=== PATIENT | male | born 1955 | race Caucasian/White ===

== ENCOUNTER → 2017-08-18 | Outpatient (CLI) | payer MEDICAID, MEDICARE, OTHER ==
[~2017-08-18] MED LIST: REGADENOSON 0.4 MG/5 ML DISP.SYRIN. IV ONE
--- NOTE | 2017-08-18 13:40 | RAD ---
APPROVED REPORT Test Type: Exercise Stress Nurse/Tech: Lindsay Robles R.N. Test Indications: htn Cardiac History: htn, dm Medications: see ehr Medical History: see ehr Resting ECG: SR with pacs Resting Heart Rate: 77 bpm Resting Blood Pressure: 163/70mmHg Pretest Chest Pain: No chest pain Nurse/Tech Notes lungs cta, heart tones irregular Consent: The procedure was explained to the patient in lay terms. Informed consent was witnessed. Franco eout was entered into [facility]. History and Stress Test performed by KARINE Sandoval, ARRT (R) (N) Stress Symptoms No chest pain or symptoms. POST EXERCISE Reason for Termination: Reached target heart rate Target HR: Yes Max HR: 160 bpm 100% of Maximum Predicted HR: 160 bpm Exercise duration: 5:30 min:sec, 2 Stage Exercise capacity: 7.0METs Max Blood Pressure: 185/69mmHg Chest Pain: No. Arrhythmia: Yes. Pacs cont, pt rhythm very irregular at end of recovery, pt no hx of irregular heartb eat ST Change: Yes. ST depression in V4-V6, II III avf INTERPRETATION Stress EKG Conclusion: Baseline EKG showed sinus rhythm. No ischemic changes at peak stress. No arr hythmias. Imaging Protocol IMAGE PROTOCOL: Rest Tc-99m/stress Tc-99m 1 day Rest: Stress: Viability: Radiopharm.Tc99m WotvbfkgvCq20p Sestamibi [id number] 33mCi Img Date 08/18/2017 08/18/2017 Inj-Img [id number]. 90min. Rest Admin Site:IV - Right AntecubitalAdministrator:KARINE Sandoval, ARRT (R)(N) Stress Admin Site: IV - Right AntecubitalAdministrator: Mikal Hinds RT (R)(N) STRESS DATA End Diast. Vol.133.0mlAv. Heart Rate81.0bpm End Syst. Vol.38.0mlCO Index BSA0.0L/min Myocardial Znds736.0gEject. Blrwsizn16.0% Stress Rates Pk. Fill Rate2.66EDV/secLVtime Pk. Fill 151.19msec Pk. Empty Rate3.81ESV/secLVtime Pk. Ctpna151.02msec 1/3 Pk. Fill1.62EDV/sec Stress Scores Regional WT0.00Summed WT0.00 Regional WM0.00Summed WM1.00 Study quality was good. Left Ventricular size was Normal at Rest and Stress. Lung uptake was Normal. Left Ventricular ejection fraction is 71%. The rest and stress images show normal perfusion, normal contraction and thickening. LV Perf. Quant 17 Seg. SSS0.00 17 Seg. SRS0.00 17 Seg. SDS0.00 Stress Defect Extent (% LAD)0.00Rest Defect Extent (% LAD)0.00Rev. Defect Extent (% LAD)0.00 Stress Defect Extent (% LCX) 0.00Rest Defect Extent (% LCX)0.00Rev. Defect Extent (% LCX)0.00 Stress Defect Extent (% RCA)0.00Rest Defect Extent (% RCA)0.00Rev. Defect Extent (% RCA)0.00 Stress Defect Extent (% SKYE)0.00Rest Defect Extent (% SKYE)0.00Rev. Defect Extent (% SKYE)0.00 Conclusion 1. Treadmill exercise cardioisotope stress test did not show any evidence of ischemia or infarct. 2. Normal left ventricular systolic function with ejection fraction calculated at 71%. 3. Low risk for cardiac events.
== END | disposition home or self-care (01) ==
LOC: NM 08:35
PROVIDERS: ATTEND Family Medicine
DX: I10 Essential (primary) hypertension (principal); E78.5 Hyperlipidemia, unspecified; I49.5 Sick sinus syndrome
CPT/HCPCS: 78452; 93017; 96374; 96376; A9500

== ENCOUNTER 2018-12-25 00:14 | Inpatient (IN) | payer MEDICARE, OTHER ==
[~2018-12-25] VITALS: Ht 177.8 cm; Wt 99.6 kg
--- NOTE | 2018-12-25 00:56 | PHYS DOC ---
Past Medical History Past Medical History: Diabetes-Type II, Hypertension, Hepatitis (hep C) Alcohol Use: None Drug Use: None Adult General Chief Complaint Chief Complaint: NAUSEA/VOMITING/DIARRHA HPI HPI Patient is a 63 year old male who presents with vomiting and diarrhea. This started this afternoon. No blood in the stool or emesis. Patient had [employer] for lunch. Nobody that he was with his sick. Patient did not the flu vaccine this year. He has had no sick contacts. No fever. Patient has not in able to tolerate oral intake. Patient has no home medicines for nausea. Patient reports symptoms are moderate in intensity.[] Review of Systems Review of Systems Constitutional: Denies fever or chills [] Eyes: Denies change in visual acuity, redness, or eye pain [] HENT: Denies nasal congestion or sore throat [] Respiratory: Denies cough or shortness of breath [] Cardiovascular: No chest pain or palpitations[] GI: See history of present illness[] : Denies dysuria or hematuria [] Musculoskeletal: Denies back pain or joint pain [] Integument: Denies rash or skin lesions [] Neurologic: Denies headache, focal weakness or sensory changes [] Endocrine: Denies polyuria or polydipsia [] All other systems were reviewed and found to be within normal limits, except as documented in this note. Current Medications Current Medications Current Medications Medications (Trade) Dose Ordered Sig/Mychal Start Time Stop Time Status Last Admin Dose Admin Hyoscyamine (Anaspaz) 0.125 mg ONCE ONCE 12/25/18 01:15 12/25/18 01:16 DC 12/25/18 01:23 0.125 MG Info (CONTRAST GIVEN -- Rx MONITORING) 1 each PRN DAILY PRN 12/25/18 02:00 12/27/18 01:59 Iohexol (Omnipaque 300 Mg/ml) 60 ml 1X ONCE 12/25/18 02:00 12/25/18 02:01 DC 12/25/18 02:09 60 ML Ondansetron HCl (Zofran) 4 mg 1X ONCE 12/25/18 01:15 12/25/18 01:16 DC 12/25/18 01:23 4 MG Sodium Chloride 1,000 ml @ 1,000 mls/hr 1X ONCE 12/25/18 02:30 12/25/18 03:29 12/25/18 02:34 1,000 MLS/HR Allergies Allergies Allergies Coded Allergies Type Severity Reaction Last Updated Verified No Known Drug Allergies 08/18/17 No Physical Exam Physical Exam Constitutional: Well developed, well nourished, no acute distress, non-toxic appearance. [] HENT: Normocephalic, atraumatic, bilateral external ears normal, oropharynx with dry mucous membranes, no oral exudates, nose normal. [] Eyes: PERRLA, EOMI, conjunctiva normal, no discharge. [] Neck: Normal range of motion, no tenderness, supple, no stridor. [] Cardiovascular:Heart rate is tachycardic with a regular rhythm, no murmur [] Lungs & Thorax: Bilateral breath sounds clear to auscultation [] Abdomen: Bowel sounds normal, soft, no tenderness, no masses, no pulsatile masses. No rebound, no guarding, no rigidity [] Skin: Warm, dry, no erythema, no rash. [] Back: No tenderness, no CVA tenderness. [] Extremities: No tenderness, no cyanosis, no clubbing, ROM intact, no edema. [] Neurologic: Alert and oriented X 3, normal motor function, normal sensory function, no focal deficits noted. [] Psychologic: Affect normal, judgement normal, mood normal. [] Current Patient Data Vital Signs Vital Signs Date Time Temp Pulse Resp B/P (MAP) Pulse Ox O2 Delivery O2 Flow Rate FiO2 12/25/18 00:55 97.4 131 20 110/64 (79) 98 Room Air 97.4 Lab Values Laboratory Tests Test 12/25/18 01:03 12/25/18 01:10 White Blood Count 15.5 x10^3/uL (4.0-11.0) H Red Blood Count 5.06 x10^6/uL (4.30-5.70) Hemoglobin 14.8 g/dL (13.0-17.5) Hematocrit 44.6 % (39.0-53.0) Mean Corpuscular Volume 88 fL (79-100) Mean Corpuscular Hemoglobin 29 pg (25-35) Mean Corpuscular Hemoglobin Concent 33 g/dL (31-37) Red Cell Distribution Width 14.0 % (11.5-14.5) Platelet Count 418 x10^3/uL (140-400) H Neutrophils (%) (Auto) 88 % (31-73) H Lymphocytes (%) (Auto) 9 % (24-48) L Monocytes (%) (Auto) 2 % (0-9) Eosinophils (%) (Auto) 1 % (0-3) Basophils (%) (Auto) 0 % (0-3) Neutrophils # (Auto) 13.6 x10^3uL (1.8-7.7) H Lymphocytes # (Auto) 1.4 x10^3/uL (1.0-4.8) Monocytes # (Auto) 0.2 x10^3/uL (0.0-1.1) Eosinophils # (Auto) 0.2 x10^3/uL (0.0-0.7) Basophils # (Auto) 0.0 x10^3/uL (0.0-0.2) Segmented Neutrophils % 71 % (35-66) H Band Neutrophils % 14 % (0-9) H Lymphocytes % 11 % (24-48) L Monocytes % 3 % (0-10) Eosinophils % 1 % (0-5) Toxic Granulation Slight Toxic Vacuolation Slight Platelet Estimate Adequate (ADEQUATE) Prothrombin Time 11.5 SEC (11.7-14.0) L Prothrombin Time INR 0.9 (0.8-1.1) Sodium Level 137 mmol/L (136-145) Potassium Level 3.0 mmol/L (3.5-5.1) L Chloride Level 96 mmol/L (98-107) L Carbon Dioxide Level 23 mmol/L (21-32) Anion Gap 18 (6-14) H Blood Urea Nitrogen 14 mg/dL (8-26) Creatinine 1.5 mg/dL (0.7-1.3) H Estimated GFR (Cockcroft-Gault) 47.4 BUN/Creatinine Ratio 9 (6-20) Glucose Level 239 mg/dL (70-99) H Calcium Level 10.2 mg/dL (8.5-10.1) H Total Bilirubin 0.3 mg/dL (0.2-1.0) Aspartate Amino Transferase (AST) 16 U/L (15-37) Alanine Aminotransferase (ALT) 22 U/L (16-63) Alkaline Phosphatase 78 U/L (46-116) Total Protein 8.5 g/dL (6.4-8.2) H Albumin 4.2 g/dL (3.4-5.0) Albumin/Globulin Ratio 1.0 (1.0-1.7) Lipase 1601 U/L (73-393) H Influenza Type A Antigen Negative (NEGATIVE) Influenza Type B Antigen Negative (NEGATIVE) Laboratory Tests 12/25/18 01:03 Laboratory Tests 12/25/18 01:03 EKG EKG [] Radiology/Procedures Radiology/Procedures CT abdomen and pelvis with contrast PQRS statement: CT scans at this facility use dose reduction including either automated exposure control, iterative reconstructions, and /or weight based radiation dosing via mA and kV modification when appropriate to reduce radiation dose to as low as reasonably achievable. HISTORY: Upper abdominal pain, elevated lipase. TECHNIQUE: Helical CT imaging abdomen and pelvis acquired with 60 mL Omnipaque 300 intravenous contrast. Abdomen findings: Coronary calcified plaque. Lung bases unremarkable. Lower lumbar disc disease. Small subcentimeter hypodense lesion segment 4 the liver too small to characterize, statistically most likely a small cyst or hemangioma. Fatty replacement of the head of pancreas, no pancreas inflammation or mass lesion evident. Left adrenal 15 mm indeterminate nodule image 40. Subcentimeter hypodense lesion right renal midpole too small to characterize due to volume averaging could be further characterized by sonography. Left kidney, right adrenal, spleen, gallbladder unremarkable. Diffuse fluid with air-fluid levels throughout the large bowel. Appendix is negative. No obstruction or inflammatory changes in GI tract. Aortoiliac artery calcified plaque. No abdominal fluid or adenopathy. Pelvis findings: Fluid within the rectum. Mild bladder wall thickening. Prostate and bones are unremarkable. No fluid or adenopathy. IMPRESSION: 1. Diffuse fluid throughout the large bowel without inflammatory change could be indicative of diarrhea or low-grade colitis. Appendix is negative. No bowel obstruction. 2. No inflammation of the pancreas evident. 3. Mild bladder wall thickening could be muscular hypertrophy or inflammatory thickening from cystitis.[] Course & Med Decision Making Course & Med Decision Making Pertinent Labs and Imaging studies reviewed. (See chart for details) Medical decision making: Patient has 2 points of Selah's criteria at the time of his evaluation in the emergency department. Given the tachycardia and the condom commitment gastroenteritis picture, electing to admit the patient for continued IV hydration and further evaluation. There is no evidence of cholecystitis being the trigger for pancreatitis. Patient has not had an alcohol drink since the . No evidence of perforation or obstruction on CT scan. Consultation was made with the on-call member of his care team. Patient was admitted in improved condition. ED course: Patient arrived, was placed in bed, and tolerated exam well. Patient' s heart rate didn't improve with IV fluids and patient was feeling better. Patient was transported to and from [place] without any complications. Discussed findings and plan with patient and family who voiced understanding. Patient was admitted in improved condition.[] Dragon Disclaimer Dragon Disclaimer This electronic medical record was generated, in whole or in part, using a voice recognition dictation system. Departure Departure Impression: Primary Impression: Nausea vomiting and diarrhea Additional Impressions: Pancreatitis Dehydration Disposition: 09 ADMITTED INPATIENT Admitting Physician: Paulie Jarrell Condition: IMPROVED Referrals: KAREN TURPIN MD (PCP) Problem Qualifiers Additional Impressions: Pancreatitis Chronicity: acute Pancreatitis type: unspecified pancreatitis type Acute pancreatitis complication: no infection or necrosis Qualified Codes: K85.90 - Acute pancreatitis without necrosis or infection, unspecified GRICEL BRADSHAW DO Dec 25, 2018 00:56
[2018-12-25] MEDS ORDERED: ONDANSETRON PF 4 MG/2 ML VIAL. IV ONE (01:15)
[2018-12-25] MEDS ORDERED: IV NORMAL SALINE 1000ML BAG 1,000 ML IV SCH (01:15)
[2018-12-25] MEDS ORDERED: HYOSCYAMINE 0.125 MG TAB.RAPDIS PO ONE (01:15)
[2018-12-25 01:18] LABS: BASO % 0 % (0-3); EOS # 0.2 x10^3/uL (0.0-0.7); EOS % 1 % (0-3); HEMATOCRIT 44.6 % (39.0-53.0); HEMOGLOBIN 14.8 g/dL (13.0-17.5); LYMPH # 1.4 x10^3/uL (1.0-4.8); LYMPH % 9 % (24-48); MEAN CORPUSCULAR HEMOGLOBIN 29 pg (25-35); MEAN CORPUSCULAR HGB CONC 33 g/dL (31-37); MEAN CORPUSCULAR VOLUME 88 fL (79-100); MONO # 0.2 x10^3/uL (0.0-1.1); MONO % 2 % (0-9); NEUT # 13.6 x10^3uL (1.8-7.7); NEUT % 88 % (31-73); PLATELET COUNT 418 x10^3/uL (140-400); RED BLOOD COUNT 5.06 x10^6/uL (4.30-5.70); WHITE BLOOD COUNT 15.5 x10^3/uL (4.0-11.0)
[2018-12-25 01:27] LABS: PROTHROMBIN TIME PATIENT 11.5 SEC (11.7-14.0)
[2018-12-25 01:28] LABS: CALCIUM 10.2 mg/dL (8.5-10.1); CREATININE 1.5 mg/dL (0.7-1.3); GFR 47.4
[2018-12-25 01:35] LABS: ALBUMIN 4.2 g/dL (3.4-5.0); TOTAL BILIRUBIN 0.3 mg/dL (0.2-1.0); TOTAL PROTEIN 8.5 g/dL (6.4-8.2)
[2018-12-25 01:44] LABS: INFLUENZA A PATIENT NEGATIVE (NEGATIVE); INFLUENZA B PATIENT NEGATIVE (NEGATIVE)
[2018-12-25] MEDS ORDERED: IOHEXOL 300 MG/ML 100ML VIAL. IV ONE (02:00)
[2018-12-25] MEDS ORDERED: CONTRAST GIVEN. MC PRN (02:00)
[2018-12-25 02:08] LABS: % BANDS 14 % (0-9); % EOS 1 % (0-5); % LYMPHS 11 % (24-48); % MONOS 3 % (0-10); % SEGS 71 % (35-66); PLT ESTIMATE ADEQUATE (ADEQUATE); TOXIC GRANULATION SLIGHT; TOXIC VACUOLATION SLIGHT
[2018-12-25] MEDS ORDERED: IV NORMAL SALINE 1000ML BAG 1,000 ML IV ONE (02:30)
--- NOTE | 2018-12-25 02:34 | RAD ---
CT abdomen and pelvis with contrast PQRS statement: CT scans at this facility use dose reduction including either automated exposure control, iterative reconstructions, and /or weight based radiation dosing via mA and kV modification when appropriate to reduce radiation dose to as low as reasonably achievable. HISTORY: Upper abdominal pain, elevated lipase. TECHNIQUE: Helical CT imaging abdomen and pelvis acquired with 60 mL Omnipaque 300 intravenous contrast. Abdomen findings: Coronary calcified plaque. Lung bases unremarkable. Lower lumbar disc disease. Small subcentimeter hypodense lesion segment 4 the liver too small to characterize, statistically most likely a small cyst or hemangioma. Fatty replacement of the head of pancreas, no pancreas inflammation or mass lesion evident. Left adrenal 15 mm indeterminate nodule image 40. Subcentimeter hypodense lesion right renal midpole too small to characterize due to volume averaging could be further characterized by sonography. Left kidney, right adrenal, spleen, gallbladder unremarkable. Diffuse fluid with air-fluid levels throughout the large bowel. Appendix is negative. No obstruction or inflammatory changes in GI tract. Aortoiliac artery calcified plaque. No abdominal fluid or adenopathy. Pelvis findings: Fluid within the rectum. Mild bladder wall thickening. Prostate and bones are unremarkable. No fluid or adenopathy. IMPRESSION: 1. Diffuse fluid throughout the large bowel without inflammatory change could be indicative of diarrhea or low-grade colitis. Appendix is negative. No bowel obstruction. 2. No inflammation of the pancreas evident. 3. Mild bladder wall thickening could be muscular hypertrophy or inflammatory thickening from cystitis. Electronically signed by: Riley Hernandez MD (12/25/2018 2:29 AM) [id number]
[2018-12-25 02:39] LABS: BILIRUBIN,URINE NEGATIVE (NEG); CLARITY,URINE CLEAR; COLOR,URINE YELLOW; NITRITE,URINE NEGATIVE (NEG); PROTEIN,URINE 30 mg/dL (NEG-TRACE); UROBILINOGEN,URINE 0.2 mg/dL (0.2 mg/dL)
[2018-12-25 02:45] LABS: BACTERIA,URINE 0 /HPF (0-FEW); HYALINE CASTS, URINE MANY /HPF; RBC,URINE 0 /HPF (0-2); SQUAMOUS EPITHELIAL CELL,UR FEW /LPF; WBC,URINE OCC /HPF (0-4)
[2018-12-25] MEDS ORDERED: ONDANSETRON PF 4 MG/2 ML VIAL. IV PRN (03:15)
[2018-12-25] MEDS ORDERED: ACETAMINOPHEN 325 MG TABLET. PO PRN (03:15)
[2018-12-25 03:30] VITALS: BP 124/79
--- NOTE | 2018-12-25 04:11 | NUR ---
Patient admission Pt arrived to the unit at approximately 0335 via w/c from the ED. Pt was oriented to room and unit routines. Patient information guide packet was explained and given to pt. at bedside. All questions and concerns regarding pt's POC was address and answered. Pt made comfortable in be. Will continue to monitor pt closely.
[2018-12-25] MEDS: MORPHINE SULFATE 4 MG/ML VIAL. IV PRN ×2 (04:14→07:54)
[2018-12-25] MEDS: IV NORMAL SALINE 1000ML BAG 1,000 ML IV SCH ×2 (04:31→10:10)
[2018-12-25] MEDS ORDERED: CHLO25TA10 PO (05:52)
[2018-12-25] MEDS ORDERED: LOVA20TA2 PO (05:52)
[2018-12-25] MEDS ORDERED: DULA0.75 SQ (05:52)
[2018-12-25] MEDS ORDERED: DULO60CA6 PO (05:52)
[2018-12-25] MEDS ORDERED: FENT1PAT90 TP (05:52)
[2018-12-25] MEDS ORDERED: OXYC5CAP PO (05:52)
[2018-12-25] MEDS ORDERED: CHOL100013 PO (05:52)
[2018-12-25] MEDS ORDERED: AZIL80TA PO (05:52)
[2018-12-25] MEDS ORDERED: ASPI-630 PO (05:52)
[2018-12-25] MEDS ORDERED: SITA1TAB11 PO (05:52)
[2018-12-25] MEDS ORDERED: INSU100I17 SQ (05:52)
[2018-12-25] MEDS ORDERED: INSU100V13 SQ (05:52)
[2018-12-25] MEDS ORDERED: CLON1PAT9 TD (05:58)
[2018-12-25 07:00] VITALS: BP 125/67
--- NOTE | 2018-12-25 08:13 | PDOC1 ---
H & P. HPI: Mr. Capps is a 63-year-old male with past medical history of hypertension, type 2 diabetes and hepatitis C who presents to the emergency room yesterday for concerns of nausea, vomiting, diarrhea. He had [employer] for lunch and shortly thereafter became ill. No one was with him became ill. He denies fever, chills, hematochezia, melena, hematemesis. He was on the emergency room to have an elevated lipase consistent with pancreatitis. Imaging was consistent with gastritis and showed no acute inflammation of the pancreas and no obvious etiology for pancreatitis including choledocholithiasis. He denies alcohol use. He was admitted for further evaluation and management. ROS: Constitutional: Denies fever, fatigue, chills HEENT: Denies sore throat, vision changes Cardio: Denies chest pain, dyspnea with exertion, syncope, palpitations, edema Pulmonary: Denies shortness of breath, cough, wheezing GI: Denies nausea, vomiting, diarrhea, constipation : Denies dysuria, frequency, urgency, incontinence Skin: Denies new lesions Neuro: Denies weakness, paresthesias PMH: As above FAMILY HX: Noncontributory SOCIAL HX: Denies alcohol use and illicit drug use. Nonsmoker. SURGICAL HX: Denies MEDS: Reviewed and reconciled ALLERGIES: Reviewed PE: Alert, oriented, no acute distress EOMI, sclera non-icteric Neck supple RRR, no murmur CTAB, no wheezes, crackles or rhonchi Soft, NT, ND, normal bowel sounds, no rebound, guarding. Negative Sood's sign. No edema, cyanosis. Normal capillary refill. Calm, cooperative, mood/affect within normal limits ASSESSMENT & PLAN: Acute pancreatitis, uncertain etiology, but could likely be related to Trulicity use Acute kidney injury, likely prerenal Hypokalemia Leukocytosis with left shift Hypertension Type 2 diabetes h/o Hepatitis C s/p treatment IV fluids Repeat potassium and replace as needed CLD Pain management Repeat labs in a.m. Stop Trulicity and do not use other GLP1s d/t pancreatitis ENID JOHNS MD Dec 25, 2018 08:13
[2018-12-25] MEDS ORDERED: INSULIN LISPRO 300 UNITS/3 ML INSULN.PEN. SQ SCH (08:45)
[2018-12-25] MEDS ORDERED: DEXTROSE 50% 25 GM / 50ML DISP.SYRIN. IV PRN (09:45)
[2018-12-25] MEDS ORDERED: fentaNYL 25MCG/HR PATCH 1 PATCH PATCH.TD72 TD SCH (10:00)
[2018-12-25] MEDS ORDERED: POTASSIUM CL 40MEQ IN 0.9%NACL 1,000 ML IV ONE (10:15)
[2018-12-25] MEDS: LOSARTAN POTASSIUM 50 MG TABLET. PO SCH (10:40)
[2018-12-25] MEDS: DULoxetine HCL 30 MG CAPSULE.DR PO SCH (10:40)
[2018-12-25] MEDS: CHLORTHALIDONE 25 MG TABLET. PO SCH (10:42)
[2018-12-25] MEDS: ASPIRIN CHEWABLE 81 MG TABLET. PO SCH (10:42)
[2018-12-25 11:00] VITALS: BP 104/59
[2018-12-25 11:11] LABS: CALCIUM 8.2 mg/dL (8.5-10.1); CREATININE 1.3 mg/dL (0.7-1.3); GFR 55.9; POTASSIUM 3.4 mmol/L (3.5-5.1)
[2018-12-25] MEDS: INSULIN LISPRO 300 UNITS/3 ML INSULN.PEN. SQ SCH ×2 (12:00→17:00)
[2018-12-25] MEDS: oxyCODONE IR 5 MG TABLET PO PRN ×2 (12:30→20:33)
[2018-12-25] MEDS ORDERED: MAGNESIUM SULFATE 2GM 50 ML IV ONE (14:00)
[2018-12-25 15:00] VITALS: BP 121/66
[2018-12-25 19:00] VITALS: BP 130/71
[2018-12-25] MEDS ORDERED: INSULIN GLARGINE 300 UNITS/3 ML INSULN.PEN. SQ SCH (21:00)
[2018-12-25 23:00] VITALS: BP 119/69
[2018-12-26 03:00] VITALS: BP 126/60
[2018-12-26 06:30] LABS: BASO % 0 % (0-3); EOS # 0.3 x10^3/uL (0.0-0.7); EOS % 4 % (0-3); HEMATOCRIT 33.7 % (39.0-53.0); HEMOGLOBIN 11.3 g/dL (13.0-17.5); LYMPH # 2.1 x10^3/uL (1.0-4.8); LYMPH % 29 % (24-48); MEAN CORPUSCULAR HEMOGLOBIN 30 pg (25-35); MEAN CORPUSCULAR HGB CONC 34 g/dL (31-37); MEAN CORPUSCULAR VOLUME 89 fL (79-100); MONO # 0.4 x10^3/uL (0.0-1.1); MONO % 5 % (0-9); NEUT # 4.6 x10^3uL (1.8-7.7); NEUT % 62 % (31-73); PLATELET COUNT 297 x10^3/uL (140-400); RED BLOOD COUNT 3.81 x10^6/uL (4.30-5.70); RED CELL DISTRIBUTION WIDTH 14.3 % (11.5-14.5); WHITE BLOOD COUNT 7.5 x10^3/uL (4.0-11.0)
[2018-12-26 06:40] LABS: ALBUMIN 3.1 g/dL (3.4-5.0); ALBUMIN/GLOBULIN RATIO 0.9 (1.0-1.7); CALCIUM 8.5 mg/dL (8.5-10.1); GFR 75.7; POTASSIUM 3.4 mmol/L (3.5-5.1); TOTAL BILIRUBIN 0.5 mg/dL (0.2-1.0); TOTAL PROTEIN 6.5 g/dL (6.4-8.2)
[2018-12-26 07:00] VITALS: BP 128/72
[2018-12-26] MEDS: oxyCODONE IR 5 MG TABLET PO PRN ×4 (08:14→22:14)
[2018-12-26] MEDS: LOSARTAN POTASSIUM 50 MG TABLET. PO SCH (08:14)
[2018-12-26] MEDS: ASPIRIN CHEWABLE 81 MG TABLET. PO SCH (08:15)
[2018-12-26] MEDS: DULoxetine HCL 30 MG CAPSULE.DR PO SCH (08:15)
[2018-12-26] MEDS: CHLORTHALIDONE 25 MG TABLET. PO SCH (08:15)
--- NOTE | 2018-12-26 08:20 | PDOC ---
SUBJECTIVE Subjective Doing well this AM. Pain resolved. Tolerating clears. No more vomiting or diarrhea. OBJECTIVE Objective Reviewed. Vital Signs Vital Signs Date Time Temp Pulse Resp B/P (MAP) Pulse Ox O2 Delivery O2 Flow Rate FiO2 12/26/18 07:00 97.6 87 18 128/72 (90) 97 Room Air 97.6 12/26/18 03:00 98.0 78 18 126/60 (82) 92 Room Air 98.0 12/25/18 23:00 98.0 79 18 119/69 (86) 92 Room Air 98.0 12/25/18 21:33 94 Room Air 12/25/18 20:33 94 Room Air 12/25/18 19:27 Room Air 12/25/18 19:00 98.4 79 18 130/71 (90) 94 Room Air 98.4 12/25/18 15:00 98.5 89 18 121/66 (84) 93 Room Air 98.5 12/25/18 14:43 Room Air 12/25/18 12:30 Room Air 12/25/18 11:00 98.8 90 18 104/59 (74) 94 Room Air 98.8 12/25/18 10:43 Room Air 12/25/18 10:40 93 125/67 12/25/18 08:24 Room Air I & O Intake and Output 12/26/18 07:01 Intake Total 480 ml Balance 480 ml Intake Oral 480 ml # Voids 5 # Bowel Movements 1 PHYSICAL EXAM Physical Exam Alert, oriented, no acute distress EOMI, sclera non-icteric Neck supple RRR, no murmur CTAB, no wheezes, crackles or rhonchi Soft, NT, ND, normal bowel sounds, no rebound, guarding. No edema, cyanosis. Normal capillary refill. Calm, cooperative, mood/affect within normal limits ASSESSMENT/PLAN Assessment/Plan Acute pancreatitis, uncertain etiology, but could likely be related to Trulicity use Acute kidney injury, resolved Hypokalemia, improving Leukocytosis with left shift, resolved Hypertension Type 2 diabetes h/o Hepatitis C s/p treatment Stop IVFs Advance diet as tolerated Pain management Repeat labs in a.m. Stop Trulicity and do not use other GLP1s d/t pancreatitis Possible dc tomorrow COMMENT Lab Laboratory Tests Test 12/25/18 10:30 12/25/18 11:31 12/25/18 16:34 12/25/18 20:33 Sodium Level 142 mmol/L (136-145) Potassium Level 3.4 mmol/L (3.5-5.1) Chloride Level 102 mmol/L (98-107) Carbon Dioxide Level 28 mmol/L (21-32) Anion Gap 12 (6-14) Blood Urea Nitrogen 14 mg/dL (8-26) Creatinine 1.3 mg/dL (0.7-1.3) Estimated GFR (Cockcroft-Gault) 55.9 Glucose Level 198 mg/dL (70-99) Calcium Level 8.2 mg/dL (8.5-10.1) Magnesium Level 1.5 mg/dL (1.8-2.4) Glucose (Fingerstick) 186 mg/dL (70-99) 157 mg/dL (70-99) 182 mg/dL (70-99) Test 12/26/18 05:26 12/26/18 07:35 White Blood Count 7.5 x10^3/uL (4.0-11.0) Red Blood Count 3.81 x10^6/uL (4.30-5.70) Hemoglobin 11.3 g/dL (13.0-17.5) Hematocrit 33.7 % (39.0-53.0) Mean Corpuscular Volume 89 fL (79-100) Mean Corpuscular Hemoglobin 30 pg (25-35) Mean Corpuscular Hemoglobin Concent 34 g/dL (31-37) Red Cell Distribution Width 14.3 % (11.5-14.5) Platelet Count 297 x10^3/uL (140-400) Neutrophils (%) (Auto) 62 % (31-73) Lymphocytes (%) (Auto) 29 % (24-48) Monocytes (%) (Auto) 5 % (0-9) Eosinophils (%) (Auto) 4 % (0-3) Basophils (%) (Auto) 0 % (0-3) Neutrophils # (Auto) 4.6 x10^3uL (1.8-7.7) Lymphocytes # (Auto) 2.1 x10^3/uL (1.0-4.8) Monocytes # (Auto) 0.4 x10^3/uL (0.0-1.1) Eosinophils # (Auto) 0.3 x10^3/uL (0.0-0.7) Basophils # (Auto) 0.0 x10^3/uL (0.0-0.2) Sodium Level 144 mmol/L (136-145) Potassium Level 3.4 mmol/L (3.5-5.1) Chloride Level 105 mmol/L (98-107) Carbon Dioxide Level 29 mmol/L (21-32) Anion Gap 10 (6-14) Blood Urea Nitrogen 7 mg/dL (8-26) Creatinine 1.0 mg/dL (0.7-1.3) Estimated GFR (Cockcroft-Gault) 75.7 BUN/Creatinine Ratio 7 (6-20) Glucose Level 170 mg/dL (70-99) Calcium Level 8.5 mg/dL (8.5-10.1) Total Bilirubin 0.5 mg/dL (0.2-1.0) Aspartate Amino Transf (AST/SGOT) 14 U/L (15-37) Alanine Aminotransferase (ALT/SGPT) 15 U/L (16-63) Alkaline Phosphatase 41 U/L (46-116) Total Protein 6.5 g/dL (6.4-8.2) Albumin 3.1 g/dL (3.4-5.0) Albumin/Globulin Ratio 0.9 (1.0-1.7) Lipase 170 U/L (73-393) Glucose (Fingerstick) 165 mg/dL (70-99) ENID JOHNS MD Dec 26, 2018 08:20
[2018-12-26] MEDS: INSULIN LISPRO 300 UNITS/3 ML INSULN.PEN. SQ SCH ×3 (08:23→17:08)
[2018-12-26] MEDS ORDERED: POTASSIUM CHLORIDE 20 MEQ TABLET.ER. PO ONE (08:30)
[2018-12-26 11:00] VITALS: BP 125/77
[2018-12-26 15:00] VITALS: BP 123/74
[2018-12-26 19:00] VITALS: BP 136/76
[2018-12-26 23:00] VITALS: BP_SYST 151; BP_SYST 85; BP_DIAS 76; BP_DIAS 85
[2018-12-27 03:00] VITALS: BP_SYST 134; BP_SYST 135; BP_DIAS 77; BP_DIAS 84
[2018-12-27 06:32] LABS: CALCIUM 8.5 mg/dL (8.5-10.1); CREATININE 0.9 mg/dL (0.7-1.3); GFR 85.5; MAGNESIUM 1.5 mg/dL (1.8-2.4); POTASSIUM 3.3 mmol/L (3.5-5.1)
[2018-12-27 07:00] VITALS: BP 161/91
[2018-12-27 08:43] VITALS: BP 161/91
[2018-12-27] MEDS: LOSARTAN POTASSIUM 50 MG TABLET. PO SCH (08:43)
[2018-12-27] MEDS: CHLORTHALIDONE 25 MG TABLET. PO SCH (08:43)
[2018-12-27] MEDS: ASPIRIN CHEWABLE 81 MG TABLET. PO SCH (08:43)
[2018-12-27] MEDS: DULoxetine HCL 30 MG CAPSULE.DR PO SCH (08:43)
[2018-12-27] MEDS: oxyCODONE IR 5 MG TABLET PO PRN (08:49)
[2018-12-27] MEDS: INSULIN LISPRO 300 UNITS/3 ML INSULN.PEN. SQ SCH (09:06)
--- NOTE | 2018-12-27 11:52 | NUR ---
Discharge Note: HARLEY LOPEZ U5 [place] Discharge instructions and discharge home medications reviewed with Patient and a copy given. All questions have been answered and understanding verbalized. The following instructions and handouts were given: NAUSEA, VOMITING AND DIARRHEA AND ACUTE PANCREATITIS. Discontinued lines and drains: Peripheral IV intact. Patient discharged to Home or Self Care withSpousevia Wheelchair
--- NOTE | 2018-12-27 21:42 | DS ---
DATE OF DISCHARGE: 12/27/2018 ADDITIONAL DIAGNOSES: 1. Acute pancreatitis, possibly related to Trulicity. 2. Diabetes. 3. Acute kidney injury, resolved. 4. Hypokalemia, improved. 5. Leukocytosis, resolved. 6. Hypertension. 7. History of hepatitis C. CHIEF COMPLAINT AND HISTORY OF PRESENT ILLNESS: A 63-year-old white male admitted through the Emergency Room with nausea, vomiting, diarrhea, had had choice for lunch, shortly thereafter became ill. No one else with him was ill. He was felt to have pancreatitis with elevated lipase in the [address] scanning of his abdomen and pelvis showed no evidence of gallstones and diffuse fluid throughout the large bowel without inflammatory change. No inflammation of the pancreas was evident and there was some mild bladder wall thickening. The patient was treated with IV fluids, pain medicine, n.p.o. status, improved by the following day with labs improving dramatically including lipase following to normal; acute kidney injury, resolving; leukocytosis, resolving. Diet was advanced to a diabetic diet, which he was tolerating by the time of discharge. It was felt he could be dismissed, to follow up in the office with his regular doctor, Dr. Sutton this week for change in diabetic therapy as we are stopping the Trulicity. DISCHARGE DISPOSITION: The patient is discharged to home. DIET: ADA diet. ACTIVITY: As tolerated. FOLLOWUP: Office of Dr. Sutton this week. DISCHARGE MEDICATIONS: Listed on the computer and have been addressed. ZARI POSEY MD DR: JUAN/juan carlos JOB#: [id number] / [id number]
[2018-12-31] MEDS ORDERED: cloNIDine TTS-1 1 PATCH PATCH.TDWK TD SCH (09:00)
== END 2018-12-27 11:45 | disposition home or self-care (01) | DRG 438 ==
LOC: ER 00:14 → 5 NORTH 03:17
PROVIDERS: ADMIT Family Medicine; ATTEND Family Medicine
DX: K85.30 Drug induced acute pancreatitis without necrosis or infection (principal); N17.0 Acute kidney failure with tubular necrosis; T38.3X5A Adverse effect of insulin and oral hypoglycemic [antidiabetic] drugs, initial encounter; E87.6 Hypokalemia; E11.9 Type 2 diabetes mellitus without complications; I10 Essential (primary) hypertension; E86.0 Dehydration; D72.829 Elevated white blood cell count, unspecified
CPT/HCPCS: 36415; 74177; 80048; 80053; 81001; 82962; 83690; 83735; 85007; 85025; 85610; 87493; 87804; 96361; 96374; J1815; J2270; J2405; J3475; J3480; J7030; Q9967; 99285-25; G0378